=== PATIENT | female | born 1980 | race Hispanic/Latino ===

== ENCOUNTER 2021-07-29 17:02 | Emergency (ER) | payer OTHER ==
[~2021-07-29] VITALS: Ht 167.6 cm; Wt 137.0 kg
[2021-07-29 17:06] VITALS: BP 147/79
[2021-07-29] MEDS ORDERED: PERM60CR19 TP (17:26)
[2021-07-29] MEDS ORDERED: HYD25 PO (17:26)
[2021-07-29] MEDS ORDERED: HYDROXYZINE 25 MG TABLET PO ONE (17:30)
== END 2021-07-29 17:34 | disposition home or self-care (01) ==
LOC: EDH 17:02
DX: B86 Scabies (principal); E66.01 Morbid (severe) obesity due to excess calories; Z68.42 Body mass index [BMI] 45.0-49.9, adult